=== PATIENT | female | born 1950 | race Caucasian/White ===

== ENCOUNTER → 2019-06-06 09:34 | Outpatient (CLI) | payer MEDICARE, SELFPAY ==
[2019-05-31 10:47] VITALS: BMI 44.1
[2019-06-06 10:13] VITALS: PULSE 102; PULSE 103; PULSE 110; PULSE 120; PULSE 132; PULSE 86; O2SAT 90; O2SAT 91; O2SAT 92; O2SAT 93; O2SAT 94; O2SAT 98
--- NOTE | 2019-06-06 10:18 | CPS ---
She wears O2 at night at 2LPM and sometimes during the day with exertion. Had to put on Nasal O2 at 2 LPM at @2 1/2 mins of exercising. She states that she feels like she can't get air down but exhaling is fine. At end of test removed O2 at 7 1/2 mins and then at 9 1/2 mins O2 sat was 97% and HR 94.
--- NOTE | 2019-06-06 15:24 | PCM.PSN.6M ---
PSN 6 Minute Walk Test - 6 Minute Walk Test 6 Minute Walk Test: 6 Minute Walk Test PSN:6-Minute Walk Test Start: 06/06/19 10:13 Freq: Status: Active Protocol: [id number].6MINW Document 06/06/19 10:13 FR (Rec: 06/06/19 10:23 FR [id number]) 6 Minute Walk Test Date Performed 06/06/19 Time Performed 10:00 Height 5 ft 2 in Weight: 108.862 kg Weight in Pounds 240.[address]: Felipe Mack Assistive device used: None Pre-test Oxygen Delivery Method Room Air Pulse Ox (%) 93 Pulse Rate (60-100 beats/min) 86 Dyspnea Chadd Scale (0-10) 0 Exertion Chadd Scale (6-20) 11 1st minute Oxygen Delivery Method Room Air Pulse Ox (%) 94 Pulse Rate (60-100 beats/min) 103 H Reported Symptoms Increased Work of Breathing 2nd minute Oxygen Delivery Method Room Air Pulse Ox (%) 90 Pulse Rate (60-100 beats/min) 120 H 3rd minute Oxygen Flow Rate (L/min) (L/min) 2 Oxygen Delivery Method Nasal Cannula Pulse Ox (%) 91 Pulse Rate (60-100 beats/min) 110 H 4th minute Oxygen Flow Rate (L/min) (L/min) 2 Oxygen Delivery Method Nasal Cannula Pulse Ox (%) 90 Pulse Rate (60-100 beats/min) 120 H Reported Symptoms Increased Work of Breathing 5th minute Oxygen Flow Rate (L/min) (L/min) 2 Oxygen Delivery Method Nasal Cannula Pulse Ox (%) 92 Pulse Rate (60-100 beats/min) 132 H Number of Rests Taken 1 Reported Symptoms Increased Work of Breathing 6th minute Oxygen Flow Rate (L/min) (L/min) 2 Oxygen Delivery Method Nasal Cannula Pulse Ox (%) 91 Pulse Rate (60-100 beats/min) 120 H Reported Symptoms Increased Work of Breathing Post-test Oxygen Flow Rate (L/min) (L/min) 2 Oxygen Delivery Method Nasal Cannula Pulse Ox (%) 98 Pulse Rate (60-100 beats/min) 102 H Dyspnea Chadd Scale (0-10) 8 Exertion Chadd Scale (6-20) 16 Reported Symptoms Increased Work of Breathing Full Laps Walked 16 Partial Lap, Number of Tiles Walked 42 Total Distance Walked (ft) 986 06/06/19 10:18 Cardiopulmonary Services by Mojgan Umana She wears O2 at night at 2LPM and sometimes during the day with exertion. Had to put on Nasal O2 at 2 LPM at @2 1/2 mins of exercising. She states that she feels like she can't get air down but exhaling is fine. At end of test removed O2 at 7 1/2 mins and then at 9 1/2 mins O2 sat was 97% and HR 94. Initialized on 06/06/19 10:18 - END OF NOTE - Interpretation Interpretation: The patient was noted to be 93% on room air, but desaturated at 2-1/2 minutes to 88%. Patient was placed on 2 L nasal cannula oxygen and was able to finish testing. Patient did have reflexive tachycardia with a peak heart rate of 132 bpm. In total, the patient traveled 986 feet over the course of 6 minutes. These findings are consistent with a respiratory limitation exercise tolerance. - Recommendations Recommendations: The patient requires no supplemental oxygen at rest, but should be using 2 L nasal cannula with any exertion.
== END ==
PROVIDERS: PCP Family Medicine; Referring Provider Internal Medicine Critical Care Medicine; Visit Provider Internal Medicine Critical Care Medicine
DX: G47.33 Obstructive sleep apnea (adult) (pediatric) (principal); R06.09 Other forms of dyspnea
CPT/HCPCS: 94618

== ENCOUNTER → 2019-06-20 09:18 | Outpatient (CLI) | payer MEDICARE, SELFPAY ==
[2019-05-31 10:47] VITALS: BMI 44.1
--- NOTE | 2019-06-20 15:45 | PFTCOMP_ITS ---
COMPLETE PULMONARY FUNCTION TEST INTERPRETATION Brief HPI: Patient is a 69 year old female, currently under the care of myself, who presents to [facility] for complete pulmonary function tests secondary to diagnosis of dyspnea. Respiratory therapist reports good effort and reproducible results. Interpretation: Forced expiration spirometry shows no large airways obstructive ventilatory defect with an FEV1 of 80% predicted. There is no significant bronchodilator response by strict ATS criteria. Spirograms are of good quality and plateau normally. The respiratory flow volume loop shows a normal pattern. Lung volumes by body plethysmography show total lung capacity at the lower limit of normal at 3.77 L, 85% predicted. All other lung volumes are within normal limits. Diffusion capacity by carbon monoxide is decreased at 45% predicted. The airway resistance is normal. No previous pulmonary function tests were available for review. Impression: Isolated reduction in diffusion capacity consistent with a pulmonary vascular disorder. Consider echocardiogram if not completed previously.
== END ==
PROVIDERS: PCP Family Medicine; Referring Provider Internal Medicine Critical Care Medicine; Visit Provider Internal Medicine Critical Care Medicine
DX: R06.00 Dyspnea, unspecified (principal)
CPT/HCPCS: 94060; 94726; 94729

== ENCOUNTER → 2019-07-16 09:36 | Outpatient (CLI) | payer MEDICARE, SELFPAY ==
[2019-05-31 10:47] VITALS: BMI 44.1
--- NOTE | 2019-07-16 09:38 | ECHOD_ITS ---
Reason For Study: PHTN Procedure This was a 2D Doppler, Color Flow transthoracic echocardiogram. Exam performed in department. Left Ventricle Normal LV size. Left ventricular systolic function is normal. The estimated ejection fraction is 60 %. Stage 1 diastolic dysfunction. No regional wall motion abnormalities noted. Right Ventricle Normal RV size. Normal systolic function. Atria Normal left atrium. Mitral Valve Normal mitral valve. Tricuspid Valve Normal tricuspid valve. Great Vessels Normal aortic root. The pulmonary artery is normal size. Normal inferior vena cava. Pericardium/Pleural No pericardial effusion. MMode/2D Measurements & Calculations LVIDd: 5.0 cm IVSd: 0.95 cm Ao root diam: 3.0 cm LVIDs: 3.2 cm LVPWd: 1.00 cm RVDd: 3.1 cm FS: 35.9 % LAV(MOD-bp): 67.2 ml LA dimension(2D): 3.8 cm LA A4 area: 20.7 cm2 LAV(MOD-bp) Indexed: 32.9 ml/m2 LAV(MOD-sp2): 63.3 ml LAV(MOD-sp4): 63.8 ml RA A4 area: 14.6 cm2 Time Measurements MV dec time: 0.17 sec Doppler Measurements & Calculations MV E max adriano: 97.4 cm/sec Lat Peak E' Adriano: 6.6 cm/sec Med Peak E' Adriano: 5.1 cm/sec MV A max adriano: 115.8 cm/sec E/E' lat: 14.6 E/E' med: 19.1 MV E/A: 0.84 Ao V2 max: 132.5 cm/sec LV V1 max: 106.3 cm/sec PA V2 max: 98.9 cm/sec Ao max P.0 mmHg LV V1 max P.5 mmHg Interpretation Summary Normal LV size. Left ventricular systolic function is normal. The estimated ejection fraction is 60 %. Stage 1 diastolic dysfunction. Ordering Physician: Felipe Mack Referring Physician: Angelina Melo Performed By: Luz Hough, SHERINE, RVT
== END ==
PROVIDERS: PCP Family Medicine; Referring Provider Internal Medicine Critical Care Medicine; Visit Provider Internal Medicine Critical Care Medicine
DX: G47.33 Obstructive sleep apnea (adult) (pediatric) (principal); R06.09 Other forms of dyspnea
CPT/HCPCS: 93306

== ENCOUNTER → 2019-08-19 11:44 | Outpatient (CLI) | payer MEDICARE, SELFPAY ==
[2019-08-13 11:04] VITALS: BMI 45.3
--- NOTE | 2019-08-19 11:50 | RAD_ITS ---
STUDY: X-RAY CHEST REASON FOR EXAM: Female, 69 years old. DYSPNEA, HEART CATH TECHNIQUE: PA and lateral views of the chest. COMPARISON: None. FINDINGS: Hyperinflation. Scattered calcified granulomas. The lungs are clear. There is no demonstrated pleural abnormality. Normal size heart. Normal mediastinum and anne-marie. Normal visualized pulmonary arteries. There is atherosclerotic tortuosity of the aortic arch and descending thoracic aorta. There are mild degenerative changes of the visualized thoracic spine. Prior fusion of the lower cervical spine. There is no demonstrated abnormality of the visualized soft tissue structures of the upper abdomen. RAD/Chest PA and Lateral IMPRESSION: Hyperinflation. No acute abnormality is seen. Electronically Signed: Jayjay Toro, at 15:20 EDT , Service support ,
[2019-08-19 12:40] LABS: Prothrombin Time (Protime)PT. 12.4 SECONDS (11.7-14.9)
[2019-08-19 12:51] LABS: Anion Gap 6 (5-15); BUN 20 mg/dL (7-18); BUN/Creat Ratio 16.3 RATIO (10-20); Calcium,Total 9.3 mg/dL (8.5-10.1); Chloride 108 mmol/L (98-107); Creatinine, Serum 1.23 mg/dL (0.55-1.02); EST Glomerular Filtration Rate 46 mL/min (>60); Est Glom Filt Rate - Afr Amer 56 mL/min (>60); Glucose 116 mg/dL (74-106); Potassium 3.8 mmol/L (3.5-5.1); Sodium Level 141 mmol/L (136-145)
== END ==
PROVIDERS: PCP Family Medicine; Referring Provider Internal Medicine Cardiovascular Disease; Visit Provider Internal Medicine Cardiovascular Disease
DX: R06.09 Other forms of dyspnea (principal); E66.9 Obesity, unspecified; G47.33 Obstructive sleep apnea (adult) (pediatric); Z86.711 Personal history of pulmonary embolism
CPT/HCPCS: 36415; 71046; 80048; 85610

== ENCOUNTER 2019-08-28 06:46 | Day surgery (SDC) | payer MEDICARE, SELFPAY ==
[2019-08-13 11:04] VITALS: BMI 45.3
--- NOTE | 2019-08-20 10:50 | EKG12_ITS ---
Test Reason : PRE HEART CATH Blood Pressure : / mmHG Vent. Rate : 085 BPM Atrial Rate : 085 BPM P-R Int : 162 ms QRS Dur : 082 ms QT Int : 360 ms P-R-T Axes : 070 043 064 degrees QTc Int : 428 ms Normal sinus rhythm Low voltage QRS (limb leads) Nonspecific ST abnormality Abnormal ECG Confirmed by MARCEL IRAHETA, HARLEY ([id number]), assignment editor ANGIE GARG ([id number]) on 08/21/2019 9:45:30 AM Referred By: Martinez Rod Confirmed By:HARLEY ROD MD
[2019-08-20 11:40] LABS: Hemoglobin 14.4 g/dL (12.0-15.0); Mean Corpuscular Hgb 27.9 pg (27.0-32.0); Mean Corpuscular Volume 87.2 fL (81-99); Mean Platelet Vol. 10.2 fl (6.2-12.0); Platelet Count 203 K/mm3 (150-450); RBC Distribution Width CV 13.2 % (11.6-14.6); RBC Distribution Width SD 42.1 fl (35.1-43.9); Red Blood Count 5.16 M/mm3 (4.2-5.4); White Blood Count 7.7 K/mm3 (4.4-11.0)
[2019-08-27 10:50] VITALS: BMI 45.3
--- NOTE | 2019-08-28 08:22 | HP.PCM_ITS ---
Problem List (1) Lower extremity edema Status: Acute (2) Weight gain with edema Status: Acute (3) COPD (chronic obstructive pulmonary disease) Status: Chronic (4) Dyspnea on exertion Status: Chronic (5) Essential hypertension Status: Chronic (6) History of pulmonary embolus (PE) Status: Chronic (7) Hyperlipidemia Status: Chronic (8) Hypothyroidism Status: Chronic (9) CHRISTINE (obstructive sleep apnea) Status: Chronic Comment: AHI 31.6 (10) Obesity Status: Chronic History and Physical Date of Admission: 08/28/19 [facility] [address] [place] [address] OFFICE VISIT Date of Service: 08/13/19 MR#: [id number] Acct: [id number] Patient: PATTI XIE Rep #: [id number] : 1950 Provider: Martinez andrews MD Age/Sex: 69/F Location: [facility] Status: Signed HPI HPI Details: Patient was informed that this visit will be billed to patient. This visit was conducted during COVID-19 pandemic. PATTI XIE, is a 69 F who presents to the office today for evaluation of pulmonary embolus about 16 years ago, currently on aspirin and Plavix, COPD on chronic 2 L NC, hypertension, hyperlipidemia, hypothyroidism and obstructive sleep apnea on CPAP. She is a previous smoker of approximately 30 pack years and quit about 7 years ago. Patient states that over the past 6 to 12 months she has had progressively worsening dyspnea on exertion, shortness of breath, worsening exercise capacity, occasional substernal chest pain radiating up into her neck and her left arm, mostly at rest but sometimes on occasion with exercise. Patient used to work out at a local exercise facility, but now is unable to do so. She denies any previous catheterization or heart artery disease. A previous stress test in 2013 suggested anterior ischemia but she had no heart catheterization at that time. She was initially on Coumadin therapy for her history of pulmonary embolism, but has been downgraded to baby aspirin and Plavix now. Patient has been referred to us by Dr. Felipe Mack for evaluation of shortness of breath and possible coronary occlusive disease. As part of his work-up she underwent a 6-minute walk test on 06/06/2019 show to be 93% on room air but desaturated about 2-1/2 minutes into exercise to 88%. She is on 2 L nasal cannula at home. Patient underwent pulmonary function test on 06/20/2019 with the following results: Isolated reduction in diffusion capacity consistent with a pulmonary vascular disorder. Consider echocardiogram if not completed previously. Echocardiogram dated 07/16/2019 is as follows: Normal LV size. Left ventricular systolic function is normal. The estimated ejection fraction is 60 %. Stage 1 diastolic dysfunction. Unable to quantitate RVSP. Nuclear stress test at an outside facility on 09/18/2018 was negative for ischemia but the patient did not reach target heart rate. Patient's blood pressure from home is 153/78 with a pulse of 79 and regular. Her physical exam is deferred due to the COVID-19 pandemic. EKG is pending. Lipids dated 05/27/2019 show an LDL of 45 and HDL of 55. Intake Vital Signs 08/13/19 Height 5 ft 2 in 08/13/19 Weight: 248 lb 08/13/19 BMI 45.3 08/13/19 BP 153/78 H 08/13/19 Blood Pressure Location Lt brachial 08/13/19 Position Sitting 08/13/19 Respiration 20 H 08/13/19 Pulse 79 08/13/19 Pulse Source Auscultation 08/13/19 BMI 44.1 Intake Visit Reasons: CHF (DR Alma MACK) Rn Intake Required: No Is patient in pain?: No Allergies levofloxacin [From Levaquin] Allergy (Intermediate, Verified 08/13/19 11:04) Itchy Medications albuterol sulfate 90 mcg/actuation aerosol inhaler 2 puff INHALATION Q6H PRN 05/31/19 [History Confirmed 07/31/19] clopidogrel 75 mg tablet 75 mg PO DAILY #1 tab 05/31/19 [Rx Confirmed 07/31/19] escitalopram oxalate 20 mg tablet 10 mg PO DAILY #1 tab 05/31/19 [Rx Confirmed 07/31/19] fluticasone fur. 100 mcg-umeclid 62.5 mcg-vilant 25 mcg inhalat.powder 1 inh INHALATION Q24H 05/31/19 [History Confirmed 07/31/19] furosemide 40 mg tablet 40 mg PO DAILY #1 tab 05/31/19 [Rx Confirmed 07/31/19] meloxicam 15 mg tablet 15 mg PO DAILY #1 tab 05/31/19 [Rx Confirmed 07/31/19] pantoprazole 40 mg tablet,delayed release 40 mg PO DAILY #1 tab 05/31/19 [Rx Confirmed 07/31/19] potassium chloride 10 mEq capsule,extended release 10 meq PO DAILY #1 cap 05/31/19 [Rx Confirmed 07/31/19] pravastatin 40 mg tablet 40 mg PO DAILY #1 tab 05/31/19 [Rx Confirmed 07/31/19] aspirin 81 mg tablet,delayed release 81 mg PO DAILY 07/31/19 [History Confirmed 07/31/19] gabapentin 400 mg capsule 400 mg PO TID cap 07/31/19 [History Confirmed 08/13/19] levothyroxine 25 mcg tablet 25 mcg PO DAILY 07/31/19 [History Confirmed 07/31/19] oxygen #1 ea 07/31/19 [History Confirmed 07/31/19] verapamil 120 mg 24 hr capsule,extended release 120 mg PO BID cap 07/31/19 [ History Confirmed 08/13/19] Is last menstrual period known: No Post menopausal: Yes Patient : No PFSH Medical History (Updated 07/31/19 @ 09:59 by Breann Marie) Dyspnea on exertion (Chronic) COPD (chronic obstructive pulmonary disease) (Chronic) History of pulmonary embolus (PE) (Chronic) Weight gain with edema (Acute) Lower extremity edema (Acute) Essential hypertension (Chronic) Hyperlipidemia (Chronic) Hypothyroidism (Chronic) Cyst of thyroid (Chronic) Obesity (Chronic) CHRISTINE (obstructive sleep apnea) (Chronic) Cervical radiculopathy (Chronic) Chronic pain (Chronic) Degeneration of intervertebral disc (Chronic) Depressive disorder (Chronic) Frequent UTI (Chronic) Hematuria syndrome (Chronic) History of kidney stones (Chronic) Osteoarthritis (Chronic) Surgical History (Updated 07/02/19 @ 10:58 by Yesika Magaña) History of back surgery (Acute) History of bilateral knee replacement (Acute) History of carpal tunnel surgery (Acute) Family History Other CVA (cerebral vascular accident) Diabetes Heart disease Myocardial infarction Social History (Updated 08/13/19 @ 11:[address] Martinez Rod MD) Smoking Status: Former smoker ROS Const Constitutional: Positive for other (referred by Dr. Mack for SOB, PFT's ok; edema, wt gain, and cp); no anorexia, body ache, chills, excessive sweating, fatigue, fever(s), frequent falls, headache(s), decreased energy, malaise, night sweats, snoring, weakness, weight change, sleep problems, abnormal sleep pattern or change in appetite Eyes Eyes: No blurry vision, change in vision, double vision, discharge, dry eyes, bulging eyes, floaters, visual disturbances, eye pain, light sensitivity, spots in vision, tunnel vision or other ENT ENT: No abnormal hearing, ear pain, ear discharge, ear pressure, hearing loss, tinnitus, dizziness/vertigo, balance problems, nosebleed/epistaxis, nasal congestion, nasal obstruction, nose pain, sinus pressure, sinus pain, nasal discharge, post nasal drip, headache(s), facial pain, dental pain, dry mouth, difficulty swallowing, bad breath, hoarseness, lip swelling, mouth lesions, mouth pain, neck pain, sore throat, tongue swelling, throat swelling or other Resp Respiratory: Positive for shortness of breath (wears oxygen 2 liters), wheezing and other (wears CPAp); no cough, change in phlegm color, chest congestion, excessive phlegm production, hemoptysis, pain on inspiration, pain with cough, snoring or stridor Cardio Cardiology: Positive for chest pain at rest, shortness of breath and generalized swelling; no chest pain with exertion, leg pain with exertion, excessive sweating, dyspnea on exertion, irregular heart rhythm, lightheadedness, orthopnea, radiating jaw, neck or arm pain, fast heart rate, slow heart rate, palpitations or other Gastro GI: No abdominal pain, belching, bloating, change in bowel habits, change in stool character, coffee ground emesis, constipation, cramping, diarrhea, heartburn, difficulty swallowing, feeling full early, excessive flatus, incontinent of stools, Vomiting blood/hematemesis, blood in stool, loose stools, Black,tarry stools, nausea/dyspepsia, pain with swallowing, vomiting or other Musc Musculoskeletal: No abnormal walking, joint pain, back pain, deformity, joint swelling, limited range of motion, loss of height, muscle cramps, muscle weakness, decreased muscle mass, body aches, neck pain, numbness, radiating pain into limb, stiffness, tingling or other Skin Skin: No acne, hair loss, change in hair, nail changes, boil, change in skin color, dry skin, redness, excessive hair growth, yellowing of the skin, lesions, itching, rash, skin pain, skin ulcer, sores, skin swelling, wounds or other Breast Breast: No other Neuro Neurology: No abnormal walking, abnormal hearing, abnormal movements, abnormal speech, behavioral changes, confusion, unsteady gait/balance, dizziness, weakness, frequent falls, headache(s), lack of coordination, loss of vision, memory loss, numbness, tingling, visual disturbances, restless legs, fainting, tremor(s) or other Psych Psychiatric: No abnormal sleep pattern, No lack of enjoyment, No anxiety, No behavioral changes, No change in appetite, No confusion, No depression, No difficulty concentrating, No hopelessness, No irritability, No memory loss, No mood swings, No panic attacks, No paranoia, No Thoughts of harming yourself/Others, No hallucinations, No other Endo Endocrine: Positive for change in body appearance, cold intolerance, flushing, heat intolerance, increased thirst/drinking, increased hunger and increased urination; no excessive sweating, fatigue or other Aller/Imm Allergy/Immunologic: Positive for wheezing; no food intolerance, itchy eyes, lip swelling, seasonal allergy symptoms, throat swelling, tongue swelling, hives or other Weston/Lymp Hematologic/Lymphatic: No easy bleeding, easy bruising, enlarged lymph nodes or other Exam Const Other: Pt's physical exam deferred d/t telephone visit during COVID-19 Pandemic [facility] Musculoskeletal: No muscle weakness Details: Details:: Exam was limited due to phone visit with no video. Quality Reporting Medication Reconciliation ([facility] 68) albuterol sulfate 90 mcg/actuation (Ventolin HFA) 2 puffs inhalation Q6H PRN aspirin (Adult Aspirin Regimen) 81 mg PO DAILY clopidogrel (Plavix) 75 mg PO DAILY escitalopram oxalate (Lexapro) 10 mg (1/2 x 20 mg) PO DAILY wofsohyjxuq-hcyrtzzdi-cwwnhanb 100-62.5-25 mcg (Trelegy Ellipta) 1 inh inhalation Q24H furosemide 40 mg PO DAILY gabapentin (Neurontin) 400 mg PO TID levothyroxine 25 mcg PO DAILY meloxicam 15 mg PO DAILY [oxygen ] pantoprazole 40 mg PO DAILY potassium chloride ER 10 mEq PO DAILY pravastatin 40 mg PO DAILY verapamil ER 120 mg PO BID BMI Screening (CMS 69) Body Mass Index (BMI): 44.1 Tobacco Screening (CMS 138) Smoking Status: Former smoker Assessment & Plan 1. Dyspnea on exertion R06.00 Plan 1. Dyspnea on exertion: The patient has had progressively worsening dyspnea on exertion and has a number of risk factors including age, hypertension, hyperlipidemia, previous smoker, previous pulmonary embolism, obesity. In addition she has occasional substernal chest pressure radiating into her neck, but this occurs mostly at rest. She has had a significant degradation of her e xercise capacity over the last 6 to 12 months and despite a extensive pulmonary work-up it does not appear that she has significant pulmonary disease to explain her symptoms. Given the above findings I recommended the patient undergo a left and right heart catheterization to establish her any pulmonary hypertension, as well as to assess her coronary arteries. The risk/benefits of the procedure were thoroughly explained the patient, including specific attention to lack of onsite surgical backup, and informed consent was obtained. Patient will continue on baby aspirin, Plavix in anticipation for possible PCI. 2. Hyperlipidemia E78.5 Plan 2. Hyperlipidemia: Her LDL and HDL cholesterol are at goal. Continue Pravachol. Orders Orders: Left & Right Heart Cath 2 Weeks 3. Essential hypertension I10 Plan 3. Hypertension: The patient's blood pressure is not quite optimized at this time. Will await the patient's laboratory results to determine whether she is a candidate for BECKY inhibitor or ARB. Preference would be for ARB. She is currently on verapamil, Lasix and potassium. We will continue these medications for now. 4. Return office in 6 months. Phone time approximately 20 minutes. This note was generated using a voice recognition system and there may be incorrect words, spelling or punctuation that were not noted when reviewing the office note prior to saving. Orders Orders: Left & Right Heart Cath 2 Weeks Plan Detail Other Orders Orders: 12 Lead EKG performed by [facility] Today G47.33, J44.9, R06.09 Left & Right Heart Cath 2 Weeks E66.9, G47.33, J44.9, R06.09, R60.0 Basic Metabolic Profile (BMP) Today R06.09 Prothrombin Time w/INR Today Z86.711 Chest PA and Lateral Today E66.9, G47.33, R06.09 Other Medications Changed: From: gabapentin 400 mg PO DAILY 1 cap 0RF To: gabapentin (Neurontin) 400 mg PO TID From: verapamil ER 120 mg PO DAILY 1 cap 0RF To: verapamil ER 120 mg PO BID Follow Up +6M (Marcel) 08/13/19 1131 <Electronically signed by Martinez Rod MD> Date _ Martinez Rod MD Cosigner Signature: Date (if applicable) CC: Angelina Melo ~ Interventional cardiology addendum: Patient seen and examined on day of procedure, and agree with above findings. No interim chest pain noted. The risks/benefits of the procedure were thoroughly explained the patient including specific attention to lack of onsite surgical backup, the patient is agreed to proceed. Cardiac catheterization to follow.
--- NOTE | 2019-08-28 09:17 | CL.D_ITS ---
Patient Name: PATTI XIE Study Date: 08/28/2019 Performing: Martinez Rod MD Ht: 61.81 inches 157 cm : 1950 Wt: 246.92 lbs 112 kg Age: 69 Gender: female BSA: 2.09 PROCEDURE(S) PERFORMED [id number]/LHC/COR/LV CLINICAL PROFILE AND INDICATIONS Indications: New Onset Angina <= 2 months, Suspected CAD Heart Failure: None Stress/Imaging Date: 09/18/2018Stress Test with SPECT MPI: Negative Angina Classification Anginal Classification w/in 2 Weeks: Anginal Equivalent Dyspnea CAD Presentations: Unstable angina. Comorbidities/Risk Factors: Hypertension Dyslipidemia Chronic Lung Disease CONCLUSIONS Normal Left Ventricular systolic function LVEF: by LV gram 65-75 % Elevated Left Ventricular End Diastolic Pressure Non obstructive coronary arteries Cardiac output - Preserved The patient has normal pulmonary hemodynamics. RECOMMENDATIONS Management as per referring [employer] Start Imdur 30mg po qd; continue asa/plavix. If pt continues to have anginal symptoms, would recommend an exercise stress echo to eval BP response to exercise. Pt's symptoms are out of proprotion to degree of CAD. LAD lesion did not appear to be significant enough to warrant FFR eval. manual sheath removal. DESCRIPTION OF PROCEDURE The patient arrived to the procedure lab. The risks and benefits of the procedure as well as a full d escription of our services here and current unavailability of surgical backup were fully explained to the patient and/or their significant other prior to the catheterization. The Timeout was completed, verifying the correct patient and procedure. The patient's procedural site was prepped and draped in the usual fashion. Local anesthetic was given subcutaneously to right groin region with Lidocaine 2%. Using a modified Seldinger technique, arterial access was obtained via the right femoral artery, a 4 Fr sheath was inserted Venous access was obtained via the right femoral vein, a 7Fr sheath was insert ed. A 7Fr thermal dilution catheter was inserted and right heart pressures were recorded, it was then advanced to PA position for cardiac outputs. O2 saturations were then obtained. Thermal dilution car diac outputs were then recorded. The Thermal dilution catheter was then removed. Left Ventriculography was performed in BOSS projection using a 4 Fr. Pigtail catheter. LV to AO pullback pr essures were then recorded. Left Coronary Artery selective angiography was performed in multiple view s using a 4 Fr. JL5 catheter. Right Coronary Artery selective angiography was then performed in multi ple views using a 4 Fr. 3DRC catheter.The arterial sheath was pulled and manual compression applied u ntil hemostasis is achieved.. The venous sheath was then pulled and manual compression applied until hemostasis achieved CORONARY ANGIOGRAPHY DOMINANCE: Right Dominant LEFT HEART ASSESSMENT Left Ventricular Ejection Fraction: by LV Gram 75 % Normal LV wall motion Normal Left Ventricular systolic function LVEDP: 16 mmHg Left Ventricular Hypertrophy RIGHT HEART ASSESSMENT Thermal CO: 4.91 Thermal CI: 2.35 Everette CO: 4.3 Everette CI: 2.06 PW: 14 PA: 26 RV: 39/5 12 RA: 04/09 7 PVR: 196 Right Heart pressures - normal LEFT MAIN: Angiographically normal LEFT ANTERIOR DESCENDING ARTERY: MID LAD: Mild calcification, Moderate luminal irregularities up to 50% CIRCUMFLEX ARTERY: Non-obstructive RIGHT CORONARY ARTERY: MID RCA: Mild luminal irregularities less than 30% COMPLICATIONS No Complications PROCEDURE MEDICATIONS Versed 1 mg IV Nitro 200 mcg IC 08/28/2019 08:49:35 Nitro 200 mcg IC 08/28/2019 08:49:35 SUMMARY OF HEMODYNAMIC DATA Time AIR REST ECG 07:37:49 RA 04/09 (7) SV 08:35:18 RV 39/5, 12 08:35:37 PW (14) PV 08:36:16 PA (26) PA 08:36:29 LV 150/-10, 16 08:42:23 LV 145/-13, 13 08:42:30 LV 151/-11, 15 08:43:05 PW (16) 08:43:05 LV 144/-8, 14 08:43:32 RV 36/7, 10 08:43:32 LV 142/-10, 12 08:43:48 RV 35/5, 9 08:43:48 LV 140/-5, 19 08:45:05 LVp 147/-5, 15 08:45:12 AOp 143/60 (94) 08:45:17 Type SV CO (l/m) CI (l/m/ HR Time AIR REST Thermal 68.20 4.91 2.35 72 07:37:49 Everette 59.70 4.30 2.06 72 07:37:49 Label % O2 Pres/Loc Time AIR REST AO 94 PV 08:48:01 PA 61 PA 08:48:09 Signed By Martinez Rod MD On 08/28/2019 09:16:45 Martinez Rod MD
[2019-08-28 10:45] LABS: Blood Gas Specimen Type VEN; VBG BASE EXCESS 1 mmol/L (-1.0-3.5); VBG Bicarbonate 26 mmol/L (22-26); VBG Oxygen Content 28 mmol/L (23-33); VBG PO2 36 mmHg (25-40); VBG SO2 67 % (50-70); VBG pCO2 45.7 mmHg (41-51); VBG pH 7.37 (7.32-7.42)
[2019-08-28 10:45] LABS: Base Excess -1 mmol/L (-2 to +2); Bicarbonate 24.4 mmol/L (22-26); Blood Gas Specimen Type ART; PO2 72 mmHG (75-100); SO2 94 % (95-99); Total Carbon Dioxide 26 mmol/L; pCO2 42.4 mmHg (35-45); pH 7.37 (7.35-7.45)
[2019-08-28 10:45] LABS: Blood Gas Specimen Type VEN; VBG BASE EXCESS 1 mmol/L (-1.0-3.5); VBG Bicarbonate 26 mmol/L (22-26); VBG Oxygen Content 27 mmol/L (23-33); VBG PO2 37 mmHg (25-40); VBG SO2 68 % (50-70); VBG pCO2 45.5 mmHg (41-51); VBG pH 7.37 (7.32-7.42)
== END 2019-08-28 13:30 | disposition home or self-care (01) ==
LOC: CLSP 06:47
PROVIDERS: PCP Family Medicine; Referring Provider Internal Medicine Cardiovascular Disease; Visit Provider Internal Medicine Cardiovascular Disease
DX: I11.0 Hypertensive heart disease with heart failure (principal); I50.9 Heart failure, unspecified; E78.5 Hyperlipidemia, unspecified; J44.9 Chronic obstructive pulmonary disease, unspecified; E03.9 Hypothyroidism, unspecified; E66.9 Obesity, unspecified; Z68.42 Body mass index [BMI] 45.0-49.9, adult; G47.33 Obstructive sleep apnea (adult) (pediatric); M54.12 Radiculopathy, cervical region; G89.29 Other chronic pain; F32.9 Major depressive disorder, single episode, unspecified; M19.90 Unspecified osteoarthritis, unspecified site; Z78.0 Asymptomatic menopausal state; Z86.711 Personal history of pulmonary embolism; Z87.440 Personal history of urinary (tract) infections; Z87.442 Personal history of urinary calculi; Z79.01 Long term (current) use of anticoagulants; Z79.02 Long term (current) use of antithrombotics/antiplatelets; Z79.82 Long term (current) use of aspirin; Z79.899 Other long term (current) drug therapy; Z87.891 Personal history of nicotine dependence
CPT/HCPCS: 36415; 82803; 85027; 93005; 93460; 99152; 99153; J7040; Q9967; C1751; C1769; C1894

== ENCOUNTER → 2019-09-03 13:35 | Outpatient (CLI) | payer MEDICARE, SELFPAY ==
[2019-09-03 08:11] VITALS: BMI 48.1
[2019-09-03 14:45] LABS: Rheumatoid Factor < 10.0 IU/mL (<15)
[2019-09-05 12:06] LABS: ANTINUCLEAR ANTIBODIES DIRECT Positive (Negative); Anti-Centromere B Ab <0.2 AI (0.0-0.9); Anti-Chromatin <0.2 AI (0.0-0.9); Anti-Jo <0.2 AI (0.0-0.9); Anti-Scleroderma-70 AB <0.2 AI (0.0-0.9); RNP Ab 0.2 AI (0.0-0.9); SJOGREN'S Anti-SS-A test < 0.2 AI (0.0-0.9); SJOGREN'S Anti-SS-B test < 0.2 AI (0.0-0.9); Smith Ab <0.2 AI (0.0-0.9)
[2019-09-05 15:53] LABS: Anti-dsDNA Ab 11 IU/mL (0-9)
[2019-09-10 03:06] LABS: Cytoplasmic Ab (C-ANCA) <1:20 titer (Neg:<1:20)
[2019-09-10 05:54] LABS: CCP IgG Antibodies 8 units (0-19); Perinuclear Ab (P-ANCA) <1:20 titer (Neg:<1:20)
== END ==
PROVIDERS: PCP Family Medicine; Referring Provider Nurse Practitioner Acute Care; Visit Provider Nurse Practitioner Acute Care
DX: R06.02 Shortness of breath (principal)
CPT/HCPCS: 36415; 86038; 86200; 86225; 86235; 86256; 86431

== ENCOUNTER → 2019-09-13 12:47 | Outpatient (CLI) | payer MEDICARE, SELFPAY ==
[2019-09-03 08:11] VITALS: BMI 48.1
--- NOTE | 2019-09-13 12:54 | CT_ITS ---
STUDY: CT CHEST WITHOUT CONTRAST REASON FOR EXAM: Female, 69 years old. SOB. R/O Idiopathic pulmonary fibrosis. RADIATION DOSAGE (If Supplied By Facility): CTDIvol = ( 19.76 ) mGy, DLP = ( 676.37 ) mGycm TECHNIQUE: Transaxial imaging was performed without the administration of intravenous contrast material. Multiplanar coronal and sagittal images were reformatted. Individualized dose optimization techniques were used for this CT. COMPARISON: None. FINDINGS: Hyperinflation. Minimal degree of increased linear markings in the medial aspect of the right middle lobe with the air bronchogram. This most like represents mild degree of scarring. This abuts the anterior pleural surface. There is no demonstrated pleural abnormality. There are calcifications of the coronary arteries. There are multiple small lymph nodes within the mediastinum, which are normal in size and morphology most compatible with reactive lymph hyperplasia. Normal hilar regions. Normal unenhanced pulmonary arteries. There is atherosclerotic calcification of the aortic arch with tortuosity and elongation of the aortic arch and descending thoracic aorta. There are multi-level degenerative changes of the thoracic spine. Small hiatal hernia. CT/Chest without Contrast IMPRESSION: Mild degree of increased linear markings with air bronchograms along the medial aspect of the right middle lobe suggestive of a mild degree of scarring. Electronically Signed: Jayjay Toro, at 13:44 EDT , Service support ,
== END ==
PROVIDERS: PCP Family Medicine; Referring Provider Nurse Practitioner Acute Care; Visit Provider Nurse Practitioner Acute Care
DX: R06.02 Shortness of breath (principal)
CPT/HCPCS: 71250

== ENCOUNTER → 2020-03-06 08:50 | Outpatient (CLI) | payer MEDICARE, SELFPAY ==
[2020-03-05 14:20] VITALS: BMI 47.0
[2020-03-06 10:08] LABS: AST(SGOT) 14 U/L (15-37); Alanine Aminotransfer ALT/SGPT 25 U/L (13-56); Albumin, Serum 3.9 g/dL (3.2-5.0); Alkaline Phosphatase 164 U/L (45-117); Anion Gap 5 (5-15); BUN 21 mg/dL (7-18); BUN/Creat Ratio 14.2 RATIO (10-20); Bilirubin, Direct 0.18 mg/dL (0.00-0.30); Calcium,Total 9.5 mg/dL (8.5-10.1); Chloride 109 mmol/L (98-107); Cholesterol 167 mg/dL (200); Creatinine, Serum 1.48 mg/dL (0.55-1.02); EST Glomerular Filtration Rate 37 mL/min (>60); Est Glom Filt Rate - Afr Amer 45 mL/min (>60); Glucose 126 mg/dL (74-106); High Density Lipoprotein 72 mg/dL; Potassium 3.5 mmol/L (3.5-5.1); Protein, Total 7.9 g/dL (6.4-8.2); Sodium Level 144 mmol/L (136-145); Triglycerides 160 mg/dL; Very Low Density Lipoprotein 32 mg/dL (5-40)
== END ==
PROVIDERS: PCP Family Medicine; Referring Provider Internal Medicine Cardiovascular Disease; Visit Provider Internal Medicine Cardiovascular Disease
DX: E78.00 Pure hypercholesterolemia, unspecified (principal); I25.10 Atherosclerotic heart disease of native coronary artery without angina pectoris; E78.5 Hyperlipidemia, unspecified; I10 Essential (primary) hypertension; Z86.711 Personal history of pulmonary embolism
CPT/HCPCS: 36415; 80048; 80061; 80076

== ENCOUNTER 2020-07-07 12:54 | Outpatient (RCR) | payer MEDICARE, SELFPAY ==
[2020-04-20 10:31] VITALS: BMI 47.5
[2020-07-07] MEDS: COVID-19 VACC, MRNA(PFIZER)/PF 30 MCG/0.3 ML SYRINGE IM (12:56)
[2020-07-28] MEDS: COVID-19 VACC, MRNA(PFIZER)/PF 30 MCG/0.3 ML SYRINGE IM (12:46)
== END 2020-10-06 23:59 ==
LOC: IMMUN 12:54
PROVIDERS: PCP Family Medicine; Referring Provider Family Medicine; Visit Provider Family Medicine
DX: Z23 Encounter for immunization (principal)
CPT/HCPCS: 0001A; 0002A; 91300

== ENCOUNTER → 2020-07-27 10:34 | Outpatient (CLI) | payer MEDICARE, SELFPAY ==
[2020-04-20 10:31] VITALS: BMI 47.5
--- NOTE | 2020-07-27 13:18 | PFTCOMP_ITS ---
COMPLETE PULMONARY FUNCTION TEST INTERPRETATION Brief HPI: Patient is a 70 year old female, currently under the care of myself, who presents to [facility] for complete pulmonary function tests secondary to diagnosis of COPD. Respiratory therapist reports good effort and reproducible results. Interpretation: Forced expiration spirometry shows no large airways obstructive ventilatory defect with an FEV1 of 100% predicted. There is no significant bronchodilator response by strict ATS criteria. Spirograms are of good quality and plateau normally. The respiratory flow volume loop shows a normal pattern. Lung volumes by body plethysmography show a normal total lung capacity at 4.62 L, 109% predicted. All other lung volumes are within normal limits. Diffusion capacity by carbon monoxide is decreased at 56% predicted. The airway resistance is normal. Compared to previous pulmonary function tests from 06/20/2019, there is been a significant improvement in all measured variables. Impression: Isolated reduction in diffusion capacity consistent with a pulmonary vascular disease. Significant improvement compared to previous testing
== END ==
PROVIDERS: PCP Family Medicine; Referring Provider Nurse Practitioner Acute Care; Visit Provider Nurse Practitioner Acute Care
DX: J44.9 Chronic obstructive pulmonary disease, unspecified (principal)
CPT/HCPCS: 94060; 94726; 94729

== ENCOUNTER → 2020-07-30 10:43 | Outpatient (CLI) | payer MEDICARE, SELFPAY ==
[2020-04-20 10:31] VITALS: BMI 47.5
[2020-07-30 11:15] VITALS: PULSE 103; PULSE 112; PULSE 117; PULSE 121; PULSE 124; PULSE 81; PULSE 97; PULSE 98; O2SAT 88; O2SAT 90; O2SAT 93; O2SAT 94; O2SAT 95; O2SAT 97
--- NOTE | 2020-07-30 12:50 | PCM.PSN.6M ---
PSN 6 Minute Walk Test - 6 Minute Walk Test 6 Minute Walk Test: 6 Minute Walk Test PSN:6-Minute Walk Test Start: 07/30/20 11:30 Freq: Status: Active Protocol: [id number] Document 07/30/20 11:15 [facility] (Rec: 07/30/20 11:36 [facility] [id number]) 6 Minute Walk Test Date Performed 07/30/20 Time Performed 11:15 Height 5 ft 1 in Weight: 114.759 kg Weight in Pounds 253.[address]: Elsa Cook Assistive device used: None Pre-test Oxygen Delivery Method Room Air Pulse Ox (%) 94 Pulse Rate (60-100 beats/min) 81 Dyspnea Chadd Scale (0-10) 0 Exertion Chadd Scale (6-20) 6 1st minute Oxygen Delivery Method Room Air Pulse Ox (%) 93 Pulse Rate (60-100 beats/min) 98 2nd minute Oxygen Delivery Method Room Air Pulse Ox (%) 90 Pulse Rate (60-100 beats/min) 112 H 3rd minute Oxygen Delivery Method Room Air Pulse Ox (%) 90 Pulse Rate (60-100 beats/min) 117 H 4th minute Oxygen Delivery Method Room Air Pulse Ox (%) 88 Pulse Rate (60-100 beats/min) 124 H Dyspnea Chadd Scale (0-10) 4 Exertion Chadd Scale (6-20) 11 Reported Symptoms Increased Work of Breathing 5th minute Oxygen Flow Rate (L/min) (L/min) 1 Oxygen Delivery Method Nasal Cannula Pulse Ox (%) 95 Pulse Rate (60-100 beats/min) 103 H 6th minute Oxygen Flow Rate (L/min) (L/min) 1 Oxygen Delivery Method Nasal Cannula Pulse Ox (%) 90 Pulse Rate (60-100 beats/min) 121 H Dyspnea Chadd Scale (0-10) 3 Exertion Chadd Scale (6-20) 11 Reported Symptoms Increased Work of Breathing Post-test Oxygen Flow Rate (L/min) (L/min) 2 Oxygen Delivery Method Nasal Cannula Pulse Ox (%) 97 Pulse Rate (60-100 beats/min) 97 Full Laps Walked 20 Partial Lap, Number of Tiles Walked 14 Total Distance Walked (ft) 1194 - Interpretation Interpretation: The patient was noted to be 94% on room air at rest. However, patient desaturated to 88% in the fourth minute was placed on 1 L nasal cannula. Patient was able to complete ambulation at that time. In total, the patient traveled 1194 feet over the course of 6 minutes with no assistive devices or breaks. These findings are consistent with a respiratory limitation exercise tolerance. Patient did have significant reflexive tachycardia as high as 124 bpm. - Recommendations Recommendations: No supplemental oxygen is indicated at rest, but patient should be using 1 L/min with exertion.
== END ==
PROVIDERS: PCP Family Medicine; Referring Provider Nurse Practitioner Acute Care; Visit Provider Nurse Practitioner Acute Care
DX: J44.9 Chronic obstructive pulmonary disease, unspecified (principal)
CPT/HCPCS: 94618

== ENCOUNTER → 2020-10-16 13:03 | Outpatient (CLI) | payer MEDICARE, SELFPAY ==
[2020-09-10 13:22] VITALS: BMI 47.7
--- NOTE | 2020-10-16 13:07 | CT_ITS ---
STUDY: LOW DOSE CT LUNG CANCER SCREENING REASON FOR EXAM: Female, 70 years old. and gt; 30 pack years. Patient quit smoking 8 years ago. RADIATION DOSAGE (If Supplied By Facility): CTDIvol = ( 4.02 ) mGy, DLP = ( 131.39 ) mGycm TECHNIQUE: No contrast was administered. Low dose technique was utilized (average mAS-38 and kVp 120). 1.25 mm axial source images with a slice interval of 1.25-mm were reconstructed in lung windows. 2.5 mm axial source images with a slice interval of 2.5-mm were reconstructed in lung windows. 5.0 mm axial source images with a slice interval of 5.0-mm were reconstructed in soft tissue windows. Nodule measured using lung windows on PACS and/or independent workstation with automated measurement of minimum and maximum diameter. Nodule measurement reported as average diameter rounded to the nearest whole number. Growth is defined as an increase ins size of greater than 1.5 mm. COMPARISON: Comparison is made with prior examination dated 09/13/2019. NODULES: No suspicious nodules are seen. Stable minimal degree of increased linear markings in the medial aspect of the right middle lobe. This most likely represents scarring. Emphysema: Mild emphysematous changes. Endobronchial lesion: None Aorta: Atherosclerotic calcific plaques. Coronary arteries: Coronary artery calcification. Heart: Unremarkable Pulmonary artery: Unremarkable Mediastinal nodes: Small mediastinal lymph nodes. Other chest and abdominal findings: CT/Low Dose CT Lung Screening IMPRESSION: Lung-RADS category 2 - Continue annual screening with LDCT in 12 months. IMPORTANT NOTES FOR USE: ACR Lung-RADS Version 1.1 Assessment Categories Release Date: 2018 Category: Coded 0-4 bases on nodule(s) with highest degree of suspicion. Negative screen is defined as categories 1 and 2; a positive screen is defined as categories 3 and 4. Category 3 and 4A nodules that are unchanged on interval CT should be coded as category 2, and individuals returned to screening in 12 months. Category 4X: Category 3 or 4 nodules with additional imaging findings that increase the suspicion of lung cancer, such as spiculation, GGN that doubles in size in 1 year, enlarged lymph notes, etc. Category Modifiers: S (significant finding unrelated to lung cancer) Electronically Signed: Jayjay Toro MD at 13:57 EDT , Service support ,
== END ==
PROVIDERS: PCP Family Medicine; Referring Provider Nurse Practitioner Acute Care; Visit Provider Nurse Practitioner Acute Care
DX: F17.210 Nicotine dependence, cigarettes, uncomplicated (principal)
CPT/HCPCS: 71271

== ENCOUNTER → 2020-12-09 19:44 | Outpatient (CLI) | payer MEDICARE, SELFPAY ==
[2020-11-20 08:46] VITALS: BMI 47.6
== END ==
PROVIDERS: PCP Family Medicine; Referring Provider Nurse Practitioner Acute Care; Visit Provider Nurse Practitioner Acute Care
DX: G47.33 Obstructive sleep apnea (adult) (pediatric) (principal)
CPT/HCPCS: 95811

== ENCOUNTER 2021-07-13 12:33 | Outpatient (CLI) | payer MEDICARE, SELFPAY ==
--- NOTE | 2021-07-13 12:44 | ECHOD_ITS ---
Reason For Study: DYSPNEA/SOB Procedure This was a 2D Doppler, Color Flow transthoracic echocardiogram. The study was technically difficult. Exam performed in department. Left Ventricle Normal LV size. Left ventricular systolic function is normal. The estimated ejection fraction is 60 %. No evidence for diastolic dysfunction. No regional wall motion abnormalities noted. Right Ventricle Normal RV size. Normal systolic function. Atria The left atrium is mildly enlarged. Normal right atrium. No doppler evidence for ASD. Mitral Valve There is no mitral annular calcification. Normal mitral valve. Trivial mitral valve insufficiency. Tricuspid Valve Normal tricuspid valve. Trivial tricuspid valve insufficiency. Right ventricular systolic pressure estimated to be 34 mmHg. Aortic Valve Trisinus/trileaflet aortic valve. Normal aortic valve. Pulmonic Valve The pulmonic valve is not well visualized. Great Vessels Normal sized aortic root. Pericardium/Pleural No pericardial effusion. MMode/2D Measurements & Calculations LVIDd: 4.4 cm IVSd: 0.96 cm Ao root diam: 3.0 cm LVIDs: 2.7 cm LVPWd: 1.0 cm RVDd: 3.2 cm FS: 38.1 % LAV(MOD-bp): 64.2 ml LA A4 area: 20.0 cm2 RA A4 area: 15.2 cm2 LAV(MOD-bp) Indexed: 31.0 ml/m2 LAV(MOD-sp2): 66.3 ml LAV(MOD-sp4): 61.8 ml Time Measurements MV dec time: 0.21 sec Doppler Measurements & Calculations MV E max adriano: 82.1 cm/sec Lat Peak E' Adriano: 6.3 cm/sec Med Peak E' Adriano: 6.3 cm/sec MV A max adriano: 98.3 cm/sec E/E' lat: 13.1 E/E' med: 13.1 MV E/A: 0.83 Ao V2 max: 156.4 cm/sec LV V1 max: 122.9 cm/sec PA V2 max: 109.3 cm/sec Ao max P.8 mmHg LV V1 max P.0 mmHg TR max adriano: 276.2 cm/sec TR max P.0 mmHg ECHO/Echo Complete Interpretation Summary The study was technically difficult. Left ventricular systolic function is normal. The estimated ejection fraction is 60 %. The left atrium is mildly enlarged. Trivial mitral valve insufficiency. Trivial tricuspid valve insufficiency. Right ventricular systolic pressure estimated to be 34 mmHg. No evidence for diastolic dysfunction. Ordering Physician: Randolph Bernabe Referring Physician: Angelina Melo Performed By: Luz Hough, RDCS, RVT
== END 2021-07-13 23:59 | disposition home or self-care (01) ==
LOC: CVS 12:34
PROVIDERS: PCP Family Medicine; Referring Provider Internal Medicine Cardiovascular Disease; Visit Provider Internal Medicine Cardiovascular Disease
DX: I25.10 Atherosclerotic heart disease of native coronary artery without angina pectoris (principal); I10 Essential (primary) hypertension; E78.5 Hyperlipidemia, unspecified; R06.09 Other forms of dyspnea
CPT/HCPCS: 93306

== ENCOUNTER → 2021-10-21 | Outpatient (CLI) | payer MEDICARE, SELFPAY ==
--- NOTE | 2021-10-21 16:06 | CT_ITS ---
STUDY: CT CHEST WITHOUT CONTRAST- LOW DOSE SCREENING PROTOCOL REASON FOR EXAM: Female, 71 years old. Former smoker. Quit smoking less than 10 years ago. 40 pack per year history. No current symptoms of lung cancer or pulmonary infection. Shared decision-making with referring PCP documented in patient''s record. RADIATION DOSAGE (If Supplied By Facility): CTDIvol = ( 4.02 ) mGy, DLP = ( 138.93 ) mGycm TECHNIQUE: Low dose screening CT examination performed from the base of the neck to the upper abdomen. Sagittal and coronal reformatted images performed. Sagittal and coronal MIP images provided. The measurements provided are average, rounded measurements per ACR guidelines. COMPARISON: 10/16/2020 FINDINGS: Status post anterior cervical discectomy and fusion of the lower cervical spine. Mild emphysema. No noncalcified nodule or mass. There is no demonstrated pleural abnormality. Normal heart and pericardium. There are calcifications of the coronary arteries. Normal mediastinum. Normal hilar regions. Normal unenhanced pulmonary arteries. Normal aorta arch and descending thoracic aorta. Normal osseous structures. There is no demonstrated abnormality of the visualized upper abdomen. CT/Low Dose CT Lung Screening IMPRESSION: 1. No significant indeterminate incidental findings requiring additional imaging. 2. Incidental findings include mild emphysema. ASSESSMENT CATEGORY: LungRADS 1 - Negative. Continue annual screening with LDCT in 12 months, per established ACR guidelines. Electronically Signed: Benny Stewart MD at 17:58 EDT ,
== END | disposition home or self-care (01) ==
LOC: CT 16:03
PROVIDERS: PCP Family Medicine; Referring Provider Nurse Practitioner Acute Care; Visit Provider Nurse Practitioner Acute Care
DX: F17.210 Nicotine dependence, cigarettes, uncomplicated (principal)
CPT/HCPCS: 71271

== ENCOUNTER → 2021-12-21 | Outpatient (CLI) | payer MEDICARE, SELFPAY ==
[2021-12-21 12:54] LABS: AST(SGOT) 21 U/L (15-37); Alanine Aminotransfer ALT/SGPT 32 U/L (13-56); Alkaline Phosphatase 153 U/L (45-117); Bilirubin, Direct 0.26 mg/dL (0.00-0.30); Cholesterol 165 mg/dL (200); High Density Lipoprotein 61 mg/dL; Triglycerides 184 mg/dL; Very Low Density Lipoprotein 37 mg/dL (5-40)
== END | disposition home or self-care (01) ==
LOC: LAB 11:17
PROVIDERS: PCP Family Medicine; Visit Provider Physician Assistant Medical
DX: E78.5 Hyperlipidemia, unspecified (principal)
CPT/HCPCS: 36415; 80061; 80076

== ENCOUNTER → 2022-10-24 | Outpatient (CLI) | payer MEDICARE, SELFPAY ==
--- NOTE | 2022-10-24 12:45 | CT_ITS ---
STUDY: LOW DOSE CT LUNG CANCER SCREENING REASON FOR EXAM: Female, 72 years old. Former smoker. 43 pack-year history. 10 years ago. RADIATION DOSAGE (If Supplied By Facility): CTDIvol = ( 4.02 ) mGy, DLP = ( 135.42 ) mGycm TECHNIQUE: No contrast was administered. Low dose technique was utilized (average mAS-38 and kVp 120). 1.25 mm axial source images with a slice interval of 1.25-mm were reconstructed in lung windows. 2.5 mm axial source images with a slice interval of 2.5-mm were reconstructed in lung windows. 5.0 mm axial source images with a slice interval of 5.0-mm were reconstructed in soft tissue windows. COMPARISON: October 21, 2021. NODULES: Total lung nodules (excluding granulomas): 0 Emphysema: Minimal emphysematous change. Endobronchial lesion: No Aorta: Stable atherosclerotic changes. CORONARY ARTERIES: Coronary artery calcification are present Heart: Normal Pulmonary artery: Normal Mediastinal nodes: None Other chest and abdominal findings: Mild degenerative changes of the thoracic spine. CT/Low Dose CT Lung Screening IMPRESSION: Lung-RADS category 1 - Continue annual screening with LDCT in 12 months. IMPORTANT NOTES FOR USE: ACR Lung-RADS Version 1.1 Assessment Categories Release Date: 2018 Category: Coded 0-4 bases on nodule(s) with highest degree of suspicion. Negative screen is defined as categories 1 and 2; a positive screen is defined as categories 3 and 4. Category 3 and 4A nodules that are unchanged on interval CT should be coded as category 2, and individuals returned to screening in 12 months. Category 4X: Category 3 or 4 nodules with additional imaging findings that increase the suspicion of lung cancer, such as spiculation, GGN that doubles in size in 1 year, enlarged lymph notes, etc. Category Modifiers: S (significant finding unrelated to lung cancer) Electronically Signed: Rico Palmer DO at 23:00 EDT Reading Location ID and State: [address] [place] [address] Tel [phone], Service support ,
== END | disposition home or self-care (01) ==
LOC: CT 12:43
PROVIDERS: PCP Family Medicine; Referring Provider Nurse Practitioner Acute Care; Visit Provider Nurse Practitioner Acute Care
DX: F17.210 Nicotine dependence, cigarettes, uncomplicated (principal)
CPT/HCPCS: 71271

== ENCOUNTER → 2023-02-21 | Outpatient (CLI) | payer MEDICARE, SELFPAY | END | disposition home or self-care (01) | LOC: SL 11:17 | PROVIDERS: PCP Family Medicine; Referring Provider Nurse Practitioner Acute Care; Visit Provider Nurse Practitioner Acute Care | DX: G47.33 Obstructive sleep apnea (adult) (pediatric) (principal) | CPT/HCPCS: 98960; G0463 ==

== ENCOUNTER 2023-05-05 10:39 | Emergency (ER) | payer MEDICARE, SELFPAY ==
[2023-05-05] VITALS (8 sets, daily range): BP systolic 111–159; BP diastolic 67–86; PULSE 61–82; RESP 13–18; TEMP 36.8; O2SAT 92–99; BMI 48.4; BMI 48.3
--- NOTE | 2023-05-05 10:41 | ED.RN ---
SPOKE WITH DR. ARAUJO REGARDING THIS PT. PER DR. ARAUJO, TRIAGE PT AND THEY WILL SEE HER IN THE ROOM. SX STARTED LAST NIGHT. DR. VALERIO HAD ALREADY CALLED AND SPOKE WITH THE DR. THEY WERE AWARE SHE WAS COMING AND NO SPECIAL ORDERS HAD BEEN GIVEN TO TRIAGE PRIOR TO PT ARRIVING.
--- NOTE | 2023-05-05 11:04 | CT_ITS ---
STUDY: CT BRAIN WITHOUT CONTRAST REASON FOR EXAM: Female, 73 years old. Neuro deficit, acute, stroke suspected RADIATION DOSAGE (If Supplied By Facility): CTDIvol = ( 44 ) mGy, DLP = ( 829 ) mGycm TECHNIQUE: Transaxial CT imaging of the brain was performed without administration of intravenous contrast material. Individualized dose optimization techniques were used for this CT. COMPARISON: No relevant priors. FINDINGS: Normal soft tissue structures. Normal calvarium. There is mild cerebral atrophy with widening of the extra-axial spaces and ventricular dilatation. 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 Normal basal ganglia and thalami. Normal brainstem. Normal cerebellum. There is no intracranial hemorrhage. There are no findings of an acute ischemic infarction. Normal visualized paranasal sinuses. CT/Brain/Head without Contrast IMPRESSION: Chronic involutional changes of the brain. N.B. : The above Results were Read Back by Marek Ruiz MD to Arcelia Ervin MD, and understanding confirmed on 05/05/2023 11:30:19 (ET). Electronically Signed: Marek Ruiz MD at 11:31 EST ,
--- NOTE | 2023-05-05 11:05 | EX.ED.DYSGE1 ---
HPI History of Present Illness Chief Complaint: Neuro S/Sx Detail of Chief Complaint: Double vision Informant: patient Onset/Context/Timing Onset: Yesterday Narrative Narrative: Patient presents with double vision that started at 530 last evening. She states she was sitting at rest when she suddenly started seeing 2 of all the objects around her. She describes the objects as being 1 on top of the other. She was seen by ophthalmology this morning and had a normal exam. She was sent to the ER due to concern for stroke. Patient is on Eliquis due to a history of pulmonary embolism. She does report a mild frontal headache. [facility] Medical History Atherosclerotic heart disease of [place] coronary artery without angina pectoris Cervical radiculopathy Chronic pain COPD (chronic obstructive pulmonary disease) Cyst of thyroid Degeneration of intervertebral disc Depressive disorder Essential hypertension Hematuria syndrome History of kidney stones History of pulmonary embolus (PE) Hyperlipidemia Hypothyroidism Kidney stones Lupus Obesity CHRISTINE (obstructive sleep apnea) Osteoarthritis Home Medications potassium chloride 10 mEq capsule,extended release 10 meq PO DAILY #1 cap 05/31/19 [Rx Last Taken 05/04/23] gabapentin 400 mg capsule (Neurontin) 400 mg PO TID 07/31/19 [History Last Taken 05/04/23] levothyroxine 25 mcg tablet 25 mcg PO DAILY 07/31/19 [History Last Taken 05/04/23] oxygen #1 ea 07/31/19 [History Last Taken Unknown] escitalopram oxalate 20 mg tablet (Lexapro) 20 mg PO DAILY 03/05/20 [History Last Taken 05/04/23] pantoprazole 40 mg tablet,delayed release 40 mg PO DAILY 03/05/20 [History Last Taken 05/04/23] pravastatin 40 mg tablet 80 mg PO DAILY 03/05/20 [History Last Taken 05/04/23] furosemide 40 mg tablet 20 mg PO BID 06/09/21 [History Last Taken 05/04/23] apixaban 5 mg tablet (Eliquis) 5 mg PO BID 01/31/23 [History Last Taken 05/04/23] fluticasone fur. 100 mcg-umeclid 62.5 mcg-vilant 25 mcg inhalat.powder (Trelegy Ellipta) 1 inh inhalation Q24H #3 device 01/31/23 [Rx Last Taken 05/04/23] amiodarone 400 mg tablet 400 mg PO Q12H 05/05/23 [History Last Taken 05/04/23] amlodipine 5 mg tablet 5 mg PO DAILY 05/05/23 [History Last Taken 05/04/23] cyanocobalamin (vitamin B-12) 1,000 mcg/mL injection solution 1,000 mcg IM .MONTHLY 05/05/23 [History Last Taken 04/26/23] nitrofurantoin monohydrate/macrocrystals 100 mg capsule 100 mg PO DAILY 05/05/23 [History Last Taken 05/04/23] prednisone 20 mg tablet 40 mg (2 x 20 mg) PO DAILY #8 tabs 05/05/23 [Rx Last Taken Unknown] Allergy/AdvReac Type Severity Reaction Status Date / Time levofloxacin [From Levaquin] Allergy Intermediate Itchy Verified 05/05/23 10:52 Family History Other CVA (cerebral vascular accident) Diabetes Heart disease Myocardial infarction Surgical History History of back surgery History of bilateral knee replacement History of carpal tunnel surgery History of right and left heart catheterization (08/28/19) Social History Smoking Status: Former smoker ROS ROS ED Constitutional Constitutional ED: Denies chills or fever(s) Eyes Eyes: Reports diplopia; Denies discharge from eye(s) ENT ENT ED: Denies discharge from eye(s), rhinorrhea or sore throat Cardiovascular Cardiovascular: Denies chest pain or palpitations Respiratory/Chest Respiratory/Chest: Denies cough or dyspnea Gastrointestinal Gastrointestinal: Denies abdominal pain, nausea or vomiting Genitourinary Genitourinary ED: Denies dysuria Musculoskeletal Musculoskeletal: Denies back pain or extremity pain Integumentary Denies Abrasions or rash Neurologic Neurologic: Denies headache(s) or weakness Psychiatric Psychiatric: Denies anxiety or depression Endocrine Endocrinology: Denies polydipsia or polyuria Allergic/Immunologic Allergic/Immunologic ED: Denies lip swelling or urticaria EXAM Physical Exam Const Vital Signs: 05/05/23 10:43 05/05/23 11:02 05/05/23 11:07 Temperature 98.3 F Temperature Source Temporal Pulse Rate 68 67 Respiratory Rate 18 14 Blood Pressure 111/86 H Blood Pressure Mean 94 Pulse Ox 94 92 99 Oxygen Delivery Method Room Air Room Air Room Air Oxygen Flow Rate (L/min) 05/05/23 11:07 05/05/23 12:19 05/05/23 13:48 Temperature Temperature Source Pulse Rate 64 69 Respiratory Rate 15 13 Blood Pressure 111/86 H 159/68 H 147/78 H Blood Pressure Mean 94 98 101 Pulse Ox 99 95 Oxygen Delivery Method Room Air Nasal Cannula Oxygen Flow Rate (L/min) 2 05/05/23 14:38 05/05/23 15:54 Temperature Temperature Source Pulse Rate 61 64 Respiratory Rate 15 15 Blood Pressure 140/79 H 134/78 H Blood Pressure Mean 99 96 Pulse Ox 97 96 Oxygen Delivery Method Oxygen Flow Rate (L/min) Positive well nourished and well developed General Appearance ED: well developed HEENT Reports moist mucous membranes Eyes EOMs intact bilaterally Neck no lymphadenopathy Chest Wall inspection of chest normal and palpation of chest normal Resp normal respiratory effort and clear to auscultation bilaterally Cardio regular rate and regular rhythm GI non-tender Palpation: soft Extremity normal to inspection Neuro oriented x3 and no sensory deficits noted Neuro Narrative: At this time when I cover each individual eye she is seeing 1 object. At this time with both eyes she is only seeing 1 object. Her NIH score is 0 for me. Motor Exam: strength 5/5 throughout Psych mental status grossly normal Skin no rashes or lesions noted MDM MDM MDM Narrative Medical decision making narrative: We did receive a phone call from ophthalmology. He is concerned for possible stroke. He has the patient, for stroke workup and to include sed rate and CRP and her lab work. There was no evidence of nerve palsy on her exam. History & Record Review Discussion w/independent historian: Patient and Family Lab Data Attestation: I reviewed the patient's lab results. Labs: Laboratory Results - last 24 hr 05/05/23 05/05/23 10:56 10:58 WBC 9.8 RBC 5.23 Hgb 13.3 Hct 44.7 MCV 85.5 MCH 25.4 L MCHC 29.8 L RDW Std Deviation 47.9 H RDW Coeff of Ara 15.6 H Plt Count 267 MPV 10.3 Immature Gran % (Auto) 0.500 Neut % (Auto) 73.0 H Lymph % (Auto) 16.2 L [place] % (Auto) 8.2 Eos % (Auto) 1.6 Baso % (Auto) 0.5 Absolute Neuts (auto) 7.1 Absolute Lymphs (auto) 1.59 Nucleated RBC % 0 ESR 49 H PT 16.7 H INR 1.4 APTT 29.1 Sodium 142 Potassium 3.4 L Chloride 108 H Carbon Dioxide 28.0 Anion Gap 6 BUN 18 Creatinine 1.64 H Estim Creat Clear Calc 23.74 Est GFR (MDRD) Af Amer 40 L Est GFR (MDRD) Non-Af 33 L BUN/Creatinine Ratio 11.0 Glucose 132 H Calcium 9.3 Troponin I High Sens 8 C-React Prot Ext Range 7.14 H POC Glucose 139 H Radiography Chest X-Ray - ED: 1 View, Read by ED Physician, Chronic Changes and No Infiltrates Diagnostic Testing: Clinical Impression(s) from Imaging Studies Brain CT 05/05/23 11:04 IMPRESSION: Chronic involutional changes of the brain. N.B. : The above Results were Read Back by Marek Ruiz MD to Arcelia Ervin MD, and understanding confirmed on 05/05/2023 11:30:19 (ET). Electronically Signed: Marek Ruiz MD at 11:31 EST , ADDENDUM: 05/05/23 1138 IMPRESSION: Chronic involutional changes of the brain. N.B. : The above Results were Read Back by Marek Ruiz MD to Arcelia Ervin MD, and understanding confirmed on 05/05/2023 11:30:19 (ET). Electronically Signed: Marek Ruiz MD at 11:31 EST , Chest X-Ray 05/05/23 11:15 IMPRESSION: Right lower lung atelectasis or infiltrate. Electronically Signed: Marek Ruiz MD at 11:44 EST , Head/Neck CTA 05/05/23 11:40 IMPRESSION: Atherosclerotic plaque with less than 50% narrowing of the internal carotid arteries. No hemodynamically significant internal carotid artery stenosis. No intracranial aneurysm or large vessel occlusion. Electronically Signed: Marek Ruiz MD at 12:15 EST , Brain MRI 05/05/23 13:46 IMPRESSION: Atrophy and mild periventricular white matter ischemic changes without evidence for acute infarct Chronic ischemic changes within the shahla. Incidental finding of small nodular density in the pineal of uncertain etiology or clinical significance. Limited repeat scan with contrast would be helpful for further evaluation if clinically warranted.. Electronically Signed: Bryan Domingo MD at 16:11 EST Reading Location ID and State: [facility] / [place] Tel , Service support , EKG Initial EKG: Attestation: I personally reviewed and interpreted this EKG as follows: Interpretation: Sinus Rhythm (Sinus at 63 with no acute ischemia.) Treatment and Re-Evaluation :: CBC was normal white count 9.8 with hemoglobin of 13.3. 73% neutrophils noted on differential. Sed rate is elevated at 49 and CRP is 7.14. Chemistry studies reveal a BUN of 18 and a creatinine 1.64. This is near the patient's baseline. Troponin is normal at 8. Portable chest x-ray per my interpretation reveals no focal infiltrate. Radiology feels there is atelectasis versus infiltrate at the right base. Patient has no symptoms of pneumonia. CT of the head reveals chronic changes. CTA of the head and neck reveals atherosclerotic plaque with with less than 50% narrowing of the internal carotid. No acute findings noted. Patient states her vision is still getting intermittently blurry. Ophthalmology wanted the patient admitted for full stroke workup. Patient initially wanted to sign out AMA, but now agrees to stay for full workup. I will speak with the hospitalist. Hospitalist asked that we check with MRI to see if they would be able to scan her this afternoon. If so when her MRI was negative she can be discharged from the ER. MRI was able to get her in to be scanned at 3 PM this afternoon. MRI shows atrophy and mild periventricular white matter ischemic changes without evidence of acute infarct. Chronic ischemic changes in the shahla noted. Because patient's sed rate was elevated at 49 and CRP is 7.14, I did speak with Dr. lA again. He states the exam does not exactly fit GCA, but he would like me to treat her with 40 mg of steroids for the next for 5 days. Patient will be discharged to home with family. She will follow-up Dr. Al as well as her family doctor. She is to continue her Eliquis. Discharge Plan Triage Chief Complaint: Neuro S/Sx ED Provider: Deb Ervin Dx/Rx/DC Orders Clinical Impression: Double vision Instructions: ED Double Vision (Diplopia) Prescriptions: New prednisone 20 mg tablet 40 mg PO DAILY Qty: 8 0RF No Action potassium chloride 10 mEq capsule, extended release 10 meq PO DAILY Qty: 1 0RF (DME) oxygen 2 liters Qty: 1 gabapentin [Neurontin] 400 mg capsule 400 mg PO TID levothyroxine 25 mcg tablet 25 mcg PO DAILY pantoprazole 40 mg tablet,delayed release (DR/EC) 40 mg PO DAILY pravastatin 40 mg tablet 80 mg PO DAILY escitalopram oxalate [Lexapro] 20 mg tablet 20 mg PO DAILY furosemide 40 mg tablet 20 mg PO BID Eliquis 5 mg tablet 5 mg PO BID Trelegy Ellipta 100-62.5-25 mcg blister with device 1 inh INHALATION Q24H Qty: 3 3RF amiodarone 400 mg tablet 400 mg PO Q12H amlodipine 5 mg tablet 5 mg PO DAILY cyanocobalamin (vitamin B-12) 1,000 mcg/mL solution 1,000 mcg IM .MONTHLY nitrofurantoin monohyd/m-cryst 100 mg capsule 100 mg PO DAILY Primary Care Provider: Angelina Melo Referrals: Angelina Melo, [Primary Care Provider] - 5-7 Days Drake Al MD [Med Staff - Active Staff] - Disposition Disposition: Home, Self Care
--- NOTE | 2023-05-05 11:06 | ED.RN ---
PER DR. ALARCON, PT IS NOT A STROKE ALERT. NIH 0.
[2023-05-05 11:13] LABS: Bedside Glucose 139 mg/dL (74-106)
--- NOTE | 2023-05-05 11:15 | RAD_ITS ---
STUDY: X-RAY CHEST REASON FOR EXAM: Female, 73 years old. Neuro deficit, acute, stroke suspected. TECHNIQUE: Single AP portable view of the chest. COMPARISON: August 19, 2019 FINDINGS: There are monitoring devices. There is right lower lung atelectasis or infiltrate. There is no demonstrated pleural abnormality. Normal size heart. Normal mediastinum and anne-marie. Normal visualized pulmonary arteries. Normal visualized aortic arch and descending thoracic aorta. Normal visualized thoracic spine. There is postoperative change of the cervical spine. Normal visualized ribs, clavicles, and shoulders. There is no demonstrated abnormality of the visualized soft tissue structures of the upper abdomen. RAD/Chest 1 View IMPRESSION: Right lower lung atelectasis or infiltrate. Electronically Signed: Marek Ruiz MD at 11:44 EST ,
[2023-05-05 11:29] LABS: Anion Gap 6 (5-15); BUN 18 mg/dL (7-18); CRP 7.14 mg/L (0.0-3.0); Calcium,Total 9.3 mg/dL (8.5-10.1); Chloride 108 mmol/L (98-107); Creatinine, Serum 1.64 mg/dL (0.55-1.02); EST Glomerular Filtration Rate 33 mL/min (>60); Est Glom Filt Rate - Afr Amer 40 mL/min (>60); Estimated Creatinine Clearance 23.74 ml/min; Glucose 132 mg/dL (74-106); Potassium 3.4 mmol/L (3.5-5.1); Sodium Level 142 mmol/L (136-145); Troponin-I HS 8 pg/mL (3.0-54.0)
[2023-05-05 11:31] LABS: Partial Thromboplast Time 29.1 Seconds (24.1-36.2)
--- NOTE | 2023-05-05 11:40 | CT_ITS ---
STUDY: CTA HEAD AND NECK WITH CONTRAST REASON FOR EXAM: Female, 73 years old. Double vision RADIATION DOSAGE (If Supplied By Facility): CTDIvol = ( 20.79 ) mGy, DLP = ( 863.13 ) mGycm TECHNIQUE: CT angiography was performed with a multi-detector CT scanner. Data acquisition was obtained from the skull base through the vertex following intravenous administration of 100mL Isovue-370. MIP images were reconstructed from the axial data set. Post-processing of the angiographic images was performed, with multiplanar reformation and 3D reconstruction. Individualized dose optimization techniques were used for this CT. COMPARISON: No relevant priors. FINDINGS: Normal bilateral petrous carotid arteries. There is calcified plaque formation of the right cavernous carotid artery, without a cross-sectional luminal stenosis. There is calcified plaque formation of the left cavernous carotid artery, without a cross-sectional luminal stenosis. Normal right A1 segments of the anterior cerebral artery. Normal left A1 segments of the anterior cerebral artery. Normal intact anterior communicating artery (ACOM). Normal bilateral A2 segments of the anterior cerebral arteries. Normal right M1 and M2 segments of the middle cerebral arteries, with a normal M1 bifurcation. Normal left M1 and M2 segments of the middle cerebral arteries, with a normal M1 bifurcation. Normal right posterior communicating artery (PCOM). Normal left posterior communicating artery (PCOM). Normal bilateral vertebral arteries. Normal basilar artery with a normal basilar bifurcation. The visualized bilateral superior cerebellar (SCA) arteries are normal. Normal bilateral P1, P2 and visualized P3 segments of the posterior cerebral arteries. There is no demonstrated aneurysm of the [place]. There is no acute abnormality of the visualized brain. AORTIC ARCH: There is atherosclerotic calcific plaque formation of the aortic arch and great vessels arising from the aortic arch, without a hemodynamically significant stenosis. There is a normal origin of the brachiocephalic, left common carotid, and left subclavian arteries. RIGHT CAROTID ARTERIES: There is atherosclerotic plaque formation of the common carotid artery, but without a hemodynamically significant stenosis. There is mild atherosclerotic plaque formation with minimal narrowing of the right carotid bulb. There is mild atherosclerotic plaque formation of the origin of the right internal carotid artery with less than 50% cross sectional diameter stenosis. Normal visualized cervical portion of the right internal carotid artery. Normal origin of the right external carotid artery (ECA). LEFT CAROTID ARTERIES: There is atherosclerotic plaque formation of the common carotid artery, but without a hemodynamically significant stenosis. There is mild atherosclerotic plaque formation with minimal narrowing of the left carotid bulb. There is mild atherosclerotic plaque formation of the origin of the left internal carotid artery with less than 50% cross sectional diameter stenosis. There is atherosclerotic tortuous elongation of the cervical portion of the left internal carotid artery. Normal origin of the left external carotid artery (ECA). VERTEBRAL ARTERIES: Normal bilateral vertebral arteries. CT/CTA Head AND Neck W/ Contrast IMPRESSION: Atherosclerotic plaque with less than 50% narrowing of the internal carotid arteries. No hemodynamically significant internal carotid artery stenosis. No intracranial aneurysm or large vessel occlusion. Electronically Signed: Marek Ruiz MD at 12:15 EST ,
[2023-05-05 11:41] LABS: Erythrocyte Sedimentation Rate 49 mm/hr (0-30)
[2023-05-05 11:44] LABS: Absolute Lymphocyte Count 1.59 X10^3/uL (0.83-4.51); Absolute Neutrophil Count 7.1 X10^3/uL (2.0-7.7); Basophil# 0.05 X10^3/uL; Basophil% 0.5 % (0-1); Eosinophil# 0.16 X10^3/uL; Eosinophils% 1.6 % (0-5); Hematocrit 44.7 % (37-47); Hemoglobin 13.3 g/dL (12.0-15.0); Lymphocyte # 1.59 X10^3/ul (0.83-4.51); Lymphocyte % 16.2 % (19-41); Mean Corp Hgb Conc 29.8 g/dL (32-36); Mean Corpuscular Hgb 25.4 pg (27.0-32.0); Mean Corpuscular Volume 85.5 fL (81-99); Mean Platelet Vol. 10.3 fl (6.2-12.0); Monocyte% 8.2 % (0-10); NRBC Flagged by Analyzer 0 % (0-5); Neutrophil # 7.14 X10^3/uL (2.7-7.7); Platelet Count 267 K/mm3 (150-450); RBC Distribution Width CV 15.6 % (11.6-14.6); RBC Distribution Width SD 47.9 fl (35.1-43.9); Red Blood Count 5.23 M/mm3 (4.2-5.4); White Blood Count 9.8 K/mm3 (4.4-11.0)
[2023-05-05 11:54] LABS: International Normalized Ratio 1.4; Prothrombin Time (Protime)PT. 16.7 SECONDS (11.7-14.9)
--- NOTE | 2023-05-05 13:46 | MRI_ITS ---
STUDY: MRI BRAIN WITHOUT CONTRAST REASON FOR EXAM: Female, 73 years old. double vision x 21hrs TECHNIQUE: Standardized multiplanar fat and water weighted pulse sequences were obtained. COMPARISON: CT of the brain May 05, 2023 FINDINGS: Atrophy and mild periventricular white matter ischemic changes without mass effect or restricted diffusion. Normal bilateral basal ganglia. Normal thalami. There is no extra-axial fluid accumulation. Normal flow voids within the major intracranial circulation suggesting patency by spin echo criteria. Normal sella turcica, pituitary gland, infundibular stalk, optic chiasm and hypothalamus. Normal tectal plate. There is a small nodular density in the pineal demonstrating intermediate signal intensity on FLAIR and increased signal intensity on T2 measuring 4.3 x 7.5 mm not typical for a pineal cyst of uncertain etiology possibly representing pinealoma of questionable significance.. Repeat scan with contrast would be helpful for further evaluation if clinically warranted Normal midbrain, and medulla. Mild chronic ischemic changes in the shahla. Normal cerebellum. Normal basal cisterns. Normal bilateral temporal bones. Normal bilateral internal auditory canals. Postsurgical changes of the orbits.. Normal visualized paranasal sinuses. Normal calvarium and skull base. Normal visualized soft tissue structures. Normal visualized upper cervical spine. MRI/Brain without Contrast IMPRESSION: Atrophy and mild periventricular white matter ischemic changes without evidence for acute infarct Chronic ischemic changes within the shahla. Incidental finding of small nodular density in the pineal of uncertain etiology or clinical significance. Limited repeat scan with contrast would be helpful for further evaluation if clinically warranted.. Electronically Signed: Bryan Domingo MD at 16:11 EST ,
[2023-05-05] MEDS: predniSONE 20 MG Tablet 40 MG PO (16:34)
== END 2023-05-05 16:50 | disposition home or self-care (01) ==
PROVIDERS: Emergency Provider Emergency Medicine; PCP Family Medicine; Visit Provider Emergency Medicine
DX: H53.2 Diplopia (principal); J44.9 Chronic obstructive pulmonary disease, unspecified; Z87.891 Personal history of nicotine dependence; Z86.711 Personal history of pulmonary embolism; I10 Essential (primary) hypertension; E78.5 Hyperlipidemia, unspecified; Z79.899 Other long term (current) drug therapy; I25.10 Atherosclerotic heart disease of native coronary artery without angina pectoris; Z79.51 Long term (current) use of inhaled steroids; Z96.653 Presence of artificial knee joint, bilateral; Z79.01 Long term (current) use of anticoagulants
CPT/HCPCS: 70450; 70496; 70498; 70551; 71045; 80048; 82962; 84484; 85025; 85610; 85652; 85730; 86140; 93005; 99284; Q9967; A4216

== ENCOUNTER 2023-05-18 14:07 | Day surgery (SDC) | payer MEDICARE, SELFPAY ==
[2023-05-18] VITALS (7 sets, daily range): BP systolic 110–158; BP diastolic 50–80; PULSE 50–61; RESP 16; TEMP 36–36.7; O2SAT 92–97; BMI 47.8
--- NOTE | 2023-05-18 14:43 | HP.PCM_ITS ---
History and Physical Date of Admission: 05/18/23 Intake Vital Signs 05/10/2407:16 05/15/2408:02 Height 5 ft 1 in 5 ft 1 in Weight: 252 lb BMI 47.6 BP 169/72 H Blood Pressure Location Rt radial Position Sitting Respiration 17 Pulse 70 Pulse Source Monitor Temp 97.3 F L Temp Source Temporal Pulse Oximetry (%) 92 Oxygen Delivery Method room air Intake Visit Reasons: TEMPORAL ARTERY Chief Complaint: temporal artery Is patient in pain?: No Allergies levofloxacin [From Levaquin] Allergy (Intermediate, Verified 05/15/23 09:03) Itchy Medications potassium chloride 10 mEq capsule,extended release 10 meq PO DAILY #1 cap 05/31/19 [Rx Confirmed 05/15/23] gabapentin 400 mg capsule (Neurontin) 400 mg PO TID 07/31/19 [History Confirmed 05/15/23] levothyroxine 25 mcg tablet 25 mcg PO DAILY 07/31/19 [History Confirmed 05/15/23] oxygen #1 ea 07/31/19 [History Confirmed 05/15/23] escitalopram oxalate 20 mg tablet (Lexapro) 20 mg PO DAILY 03/05/20 [History Confirmed 05/15/23] pantoprazole 40 mg tablet,delayed release 40 mg PO DAILY 03/05/20 [History Confirmed 05/15/23] pravastatin 40 mg tablet 80 mg PO DAILY 03/05/20 [History Confirmed 05/15/23] furosemide 40 mg tablet 20 mg PO BID 06/09/21 [History Confirmed 05/15/23] apixaban 5 mg tablet (Eliquis) 5 mg PO BID 01/31/23 [History Confirmed 05/15/23] fluticasone fur. 100 mcg-umeclid 62.5 mcg-vilant 25 mcg inhalat.powder (Trelegy Ellipta) 1 inh inhalation Q24H #3 device 01/31/23 [Rx Confirmed 05/15/23] amiodarone 400 mg tablet 400 mg PO Q12H 05/05/23 [History Confirmed 05/15/23] amlodipine 5 mg tablet 5 mg PO DAILY 05/05/23 [History Confirmed 05/15/23] cyanocobalamin (vitamin B-12) 1,000 mcg/mL injection solution 1,000 mcg IM .MONTHLY 05/05/23 [History Confirmed 05/15/23] nitrofurantoin monohydrate/macrocrystals 100 mg capsule 100 mg PO DAILY 05/05/23 [History Confirmed 05/15/23] [facility] Medical History Atherosclerotic heart disease of [place] coronary artery without angina pectoris Cervical radiculopathy Chronic pain COPD (chronic obstructive pulmonary disease) Cyst of thyroid Degeneration of intervertebral disc Depressive disorder Essential hypertension Hematuria syndrome History of kidney stones History of pulmonary embolus (PE) Hyperlipidemia Hypothyroidism Kidney stones Lupus Obesity CHRISTINE (obstructive sleep apnea) Osteoarthritis Surgical History History of back surgery History of bilateral knee replacement History of carpal tunnel surgery History of right and left heart catheterization (08/28/19) Family History (Updated 05/15/23 @ 09:02 by Meeta Juarez) Father CVA (cerebral vascular accident) Diabetes HypertensionMother Diabetes Heart diseaseOther Myocardial infarction Social History (Updated 05/15/23 @ 09:02 by Meeta Juarez) Smoking Status: Former smoker alcohol intake: never substance use type: does not use HPI HPI HPI: Patient is a 73-year-old female here for temporal artery biopsy. She reports she is having blurry vision in both eyes. She was also having headache on both sides but worse on the left. ROS General General: No weight change, appetite, fatigue, colon cancer, breast cancer or weakness HEENT HEENT: Yes eye injury; No difficulty swallowing, eye surgery, swollen glands or hoarseness Endo Endocrine: No thyroid disease, diabetes mellitus, thyroid cancer, Hair loss, heat intolerance or cold intolerance Skin Skin: No rash or changing moles Musc Musculoskeletal: Yes arthritis and gout; No back problems, rheumatoid arthritis or joint pain Cardio Cardiovascular: Yes atrial fibrillation; No murmur, pacemaker, heart disease, high blood pressure, heart attack, heart stent, palpitations, shortness of breat with exertion or chest pain Psych Psychiatric: No depression, anxiety or hearing voices Resp Respiratory: Yes shortness of breath, Yes sleep apnea, No cough, Yes COPD, No asthma, No emphysema and No wheezing Gastro Gastrointestinal: No abdominal pain, No nausea or vomiting, No diarrhea, No constipation, No blood in stool, No acid reflux, No hemorrhoids, No ulcers, No gallbladder problem and No black,tarry stools [place] Hematologic: Yes blood thinners, No blood disorders, No bleeding, No anemia and No blood clots Neuro Neurologic: No system reviewed and no additional complaints, except as documented, No as per HPI, No abnormal gait, No abnormal hearing, No abnormal movements, No abnormal speech, No behavioral changes, No burning sensations, No confusion, No convulsions, No disequilibrium, No dizziness, No localized weakness, No frequent falls, No headache(s), No lack of coordination, No loss of vision, No memory loss, No numbness, No other visual disturbances, No radicular pain, No restless legs, No sensory deficit, No syncope, No tingling, No tremor(s), No weakness and No other Exam Const General: cooperative Orientation: alert and oriented x3 HENMT Head: normal to inspection Neck Neck: normal visual inspection and full ROM Chest Chest palpation & inspection: normal inspection of the chest Resp Effort & Inspection: normal respiratory effort Auscultation: clear to auscultation bilaterally Cardio Rate: regular rate Rhythm: regular rhythm GI Inspection: non-distended Palpation: soft and nontender Skin General: no rashes or lesions noted Neuro General: patient alert and patient oriented x3 Extrem General: full ROM Psych Appearance: grossly normal Mental Status: mental status grossly normal Assessment and Plan Assessment and Plan (1) Blurry vision: Status: Acute Plan: The patient has been having blurry vision. She says it is on both sides. She is also been having headaches on both sides but worse on the left so we decided to biopsy the left. I discussed left temporal artery biopsy with her in detail. I discussed the risks including but not limited to bleeding, infection, need for further surgery or none diagnosis of disease with normal results. Patient will stop her blood thinners 2 days in advance. Fletcher Azevedo MD Pager: [facility] [address] [place] [address], [address] [place] [address] Office: I have examined the patient and the H&P has been reviewed. There are no clinical changes since date of exam.
[2023-05-18] MEDS: Lactated Ringers 1,000 ML 15 ML IV (14:53)
[2023-05-18] MEDS: Lidocaine 1% (20 ml mdv) 20 ML Vial (15:30)
--- NOTE | 2023-05-18 15:40 | TEM_PTH ---
PATHOLOGY RESULTS PATIENT: PATTI XIE LOC: [facility] [place] U#:[id number] AGE/SX: 73/F ROOM: RE05/18/[address]: Dr. Fletcher Azevedo MD : 1950 BED: DIS: 05/18/2023 SPEC #: [id number] RECD: 05/19/23 07:34 STATUS: ANNE REMerrill #: [id number] MIQUEL: 05/18/23 15:[address]: Fletcher Azevedo DEPT: SURGICAL PATHOLOGY RECD BY: Shannan Parnell ENTERED: 05/19/23 10:06 SP TYPE: TEMPORAL OTHR DR: Dr. 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 No evidence of arteritis. See comment. AM:ramirez 05/22/2023 COMMENT Elastin stain with matched control supports the above diagnosis. MICROSCOPIC DESCRIPTION Slides are reviewed. GROSS DESCRIPTION Received in fixative is one container labeled with the patient's name and designated Left temporal artery segment. The specimen consists of a tubular piece of reynolds-pink soft tissue measuring 1.1 cm in length and 0.2 cm in diameter. The specimen is totally submitted in one cassette. / SJ:ramirez 05/19/2023 TC:5 CPT: 76650, 76534
--- NOTE | 2023-05-18 15:54 | OP.PCM_ITS ---
Report of Operation Date of Procedure: 05/18/23 Pre-Operative Diagnosis: Left temporal headaches and blurry vision Post-Operative Diagnosis: Same Surgery/Procedure Performed:: Left temporal artery biopsy Type of Anesthesia: Local MAC Specimen's removed: Left temporal artery segment Estimated Blood Loss (mL): 10 Description of Procedure: Patient was brought back to the operating room and MAC anesthesia was induced. The left restorationist was inspected. The artery was identified and marked and hair was clipped. Next the left restorationist was prepped and draped in usual sterile fashion. The incision was injected with local anesthetic and then incised with a scalpel. Subcutaneous hemostasis was obtained use electrocautery. The fascia was sharply opened using scissors. Self-retaining retractors were placed. The artery was identified. His tributaries were clipped with small clips. It is origin was double clipped and then divided and its distal segment was also clip ped and divided in the same fashion. Specimen was sent and the bleeding was stopped with clips and electrocautery. The area was irrigated and suctioned dry. There was good hemostasis. The skin was then closed with interrupted 4-0 Monocryl suture and a running 4-0 Monocryl suture. Dermabond glue was applied. Patient was taken to PACU in stable condition and tolerated the procedure well. Admit VTE Documentation VTE Mechan Device Prophylaxis: SCD's
--- NOTE | 2023-05-18 15:56 | DCINST_ITS ---
Discharge Instructions Diet Discharge Diet: Light diet - advance as tolerated Activity Discharge Activity: Return to Normal Activity, May Drive (Tomorrow) and May Shower (Tomorrow) Dressing / Incision Call your doctor if your incision/area has: Continuous Slow Oozing, Sudden Increased Bleeding, Increased Pain/ Swelling, Increased Redness, Foul Smelling Discharge and Swelling at the incision site Call your doctor if you observe: Fever of 101 or Higher Cleanse incision/area with: Soap & Water Additional Dressing/Incision Instructions:: Resume Eliquis on Monday night, alternate ibuprofen and Tylenol for pain control Follow Up Care Please Follow Up With: Fletcher Azevedo MD When: Please call to schedule 2 week follow up appointment. [phone] Test Results: Test results from this visit will be discussed in further detail at your follow- up appointment, if applicable. Discharge Plan Admission Attending Provider: Fletcher Azevedo Primary Care Provider: Angelina Melo Discharge Orders/Prescriptions Prescriptions: No Action potassium chloride 10 mEq capsule, extended release 10 meq PO DAILY Qty: 1 0RF (DME) oxygen 2 liters Qty: 1 gabapentin [Neurontin] 400 mg capsule 400 mg PO TID levothyroxine 25 mcg tablet 25 mcg PO DAILY pantoprazole 40 mg tablet,delayed release (DR/EC) 40 mg PO DAILY pravastatin 40 mg tablet 80 mg PO QHS escitalopram oxalate [Lexapro] 20 mg tablet 20 mg PO DAILY furosemide 40 mg tablet 40 mg PO .QAM Eliquis 5 mg tablet 5 mg PO BID Trelegy Ellipta 100-62.5-25 mcg blister with device 1 inh INHALATION Q24H Qty: 3 3RF amiodarone 400 mg tablet 400 mg PO Q12H Patient Comments: PT NOT TAKING INSURANCE DIDN'T FILL amlodipine 5 mg tablet 5 mg PO DAILY Patient Comments: PT NOT CURRENTLY TAKING, INSURANCE DIDN'T FILL cyanocobalamin (vitamin B-12) 1,000 mcg/mL solution 1,000 mcg IM .MONTHLY nitrofurantoin monohyd/m-cryst 100 mg capsule 100 mg PO DAILY furosemide 20 mg tablet 20 mg PO 1800 allopurinol 300 mg tablet 300 mg PO DAILY albuterol sulfate 90 mcg/actuation HFA aerosol inhaler 1 puff INHALATION PRN Referrals / Follow Up: Angelina Melo DO [Primary Care Provider] - Disposition Disposition (needs filled in before D/C Order can be placed): Home, Self Care
== END 2023-05-18 17:03 | disposition home or self-care (01) ==
LOC: SDC 14:08 → AC 14:10
PROVIDERS: PCP Family Medicine; Referring Provider Surgery; Visit Provider Surgery
PROC: (CPT 37609; principal; 2023-05-18 15:25)
DX: H35.1 Retinopathy of prematurity (principal); J44.9 Chronic obstructive pulmonary disease, unspecified; Z68.42 Body mass index [BMI] 45.0-49.9, adult; I25.10 Atherosclerotic heart disease of native coronary artery without angina pectoris; G89.29 Other chronic pain; Z87.891 Personal history of nicotine dependence; E66.9 Obesity, unspecified; I10 Essential (primary) hypertension; Z82.3 Family history of stroke; E78.5 Hyperlipidemia, unspecified; G47.33 Obstructive sleep apnea (adult) (pediatric); Z86.711 Personal history of pulmonary embolism; E03.9 Hypothyroidism, unspecified
CPT/HCPCS: 37609; 00352; 88305; 88313; A4648; J7120

== ENCOUNTER → 2024-09-02 | Outpatient (REF) | payer MEDICARE, SELFPAY ==
[2024-09-02 10:13] LABS: Anion Gap 13 (5-15); BUN 41 mg/dL (4-19); BUN/Creat Ratio 16.7 RATIO (10-20); Calcium,Total 9.4 mg/dL (7.6-11.0); Carbon Dioxide 24.3 mmol/L (21.0-32.0); Chloride 101 mmol/L (98-108); Creatinine, Serum 2.42 mg/dL (0.70-1.20); EST Glomerular Filtration Rate 21 (>60); Glucose 89 mg/dL (70-99); Potassium 4.6 mmol/L (3.3-5.1); Sodium Level 139 mmol/L (133-145)
== END ==
LOC: OLS.ACH 05:00
PROVIDERS: PCP Family Medicine; Visit Provider Internal Medicine
DX: I50.22 Chronic systolic (congestive) heart failure (principal)
CPT/HCPCS: 36415; 80048

== ENCOUNTER → 2024-09-09 | Outpatient (REF) | payer MEDICARE, SELFPAY ==
[2024-09-09 10:00] LABS: Absolute Neutrophil Count 5.4 X10^3/uL (2.0-7.7); Basophil# 0.06 X10^3/uL; Basophil% 0.7 % (0-1); Eosinophil# 0.16 X10^3/uL; Hematocrit 40.5 % (37-47); Hemoglobin 12.4 g/dL (12.0-15.0); Lymphocyte % 23.3 % (19-41); Mean Corp Hgb Conc 30.6 g/dL (32-36); Mean Corpuscular Hgb 28.8 pg (27.0-32.0); Mean Platelet Vol. 9.9 fl (6.2-12.0); Monocyte# 0.63 X10^3/uL; Monocyte% 7.7 % (0-10); NRBC Flagged by Analyzer 0 % (0-5); Neutrophil # 5.38 X10^3/uL (2.7-7.7); Neutrophil % 65.8 % (47-70); Platelet Count 229 K/mm3 (150-450); RBC Distribution Width CV 14.3 % (11.6-14.6); RBC Distribution Width SD 49.7 fl (35.1-43.9); Red Blood Count 4.31 M/mm3 (4.2-5.4); White Blood Count 8.2 K/mm3 (4.4-11.0)
[2024-09-09 10:13] LABS: Anion Gap 11 (5-15); BUN 50 mg/dL (4-19); BUN/Creat Ratio 19.3 RATIO (10-20); Calcium,Total 9.5 mg/dL (7.6-11.0); Carbon Dioxide 25.8 mmol/L (21.0-32.0); Chloride 105 mmol/L (98-108); Creatinine, Serum 2.59 mg/dL (0.70-1.20); EST Glomerular Filtration Rate 19 (>60); Glucose 120 mg/dL (70-99); Potassium 4.5 mmol/L (3.3-5.1); Sodium Level 141 mmol/L (133-145)
== END ==
LOC: OLS.ACH 05:00
PROVIDERS: PCP Family Medicine; Visit Provider Internal Medicine
DX: I50.22 Chronic systolic (congestive) heart failure (principal); E78.5 Hyperlipidemia, unspecified; I13.10 Hypertensive heart and chronic kidney disease without heart failure, with stage 1 through stage 4 chronic kidney disease, or unspecified chronic kidney disease; N18.9 Chronic kidney disease, unspecified
CPT/HCPCS: 36415; 80048; 85025

== ENCOUNTER → 2024-09-13 05:00 | Outpatient (REF) | payer MEDICARE, SELFPAY ==
[2024-09-13 08:54] LABS: Anion Gap 11 (5-15); BUN 52 mg/dL (4-19); BUN/Creat Ratio 21.6 RATIO (10-20); Calcium,Total 9.3 mg/dL (7.6-11.0); Carbon Dioxide 24.1 mmol/L (21.0-32.0); Chloride 104 mmol/L (98-108); Creatinine, Serum 2.42 mg/dL (0.70-1.20); EST Glomerular Filtration Rate 21 (>60); Glucose 103 mg/dL (70-99); Potassium 4.4 mmol/L (3.3-5.1); Sodium Level 139 mmol/L (133-145)
== END ==
LOC: OLS.ACH 05:00
PROVIDERS: PCP Family Medicine; Visit Provider Internal Medicine
DX: E03.9 Hypothyroidism, unspecified (principal); M10.9 Gout, unspecified; E78.5 Hyperlipidemia, unspecified
CPT/HCPCS: 36415; 80048

== ENCOUNTER → 2024-09-16 | Outpatient (REF) | payer MEDICARE, SELFPAY ==
[2024-09-16 08:53] LABS: Anion Gap 11 (5-15); BUN 46 mg/dL (4-19); Calcium,Total 9.2 mg/dL (7.6-11.0); Carbon Dioxide 25.4 mmol/L (21.0-32.0); Chloride 104 mmol/L (98-108); Creatinine, Serum 2.09 mg/dL (0.70-1.20); EST Glomerular Filtration Rate 25 (>60); Glucose 104 mg/dL (70-99); Potassium 4.1 mmol/L (3.3-5.1); Sodium Level 140 mmol/L (133-145)
== END ==
LOC: OLS.ACH 05:00
PROVIDERS: PCP Family Medicine; Visit Provider Internal Medicine
DX: I50.22 Chronic systolic (congestive) heart failure (principal)
CPT/HCPCS: 36415; 80048